=== PATIENT | male | born 1960 | race Native Hawaiian/Other Pacific Islander ===

== ENCOUNTER 2022-02-01 10:57 | Outpatient (CLI) | payer OTHER ==
[2022-02-01 11:26] LABS: POTASSIUM 4.1 mmol/L (3.6-5.2)
[2022-02-01 12:42] LABS: PARTIAL THROMBOPLASTIN TIME 25.3 SECONDS (24.5-33.6)
== END 2022-02-01 19:33 | disposition home or self-care (01) ==
LOC: LABW 10:57
PROVIDERS: ATTEND Family Medicine
DX: Z01.818 Encounter for other preprocedural examination (principal); I10 Essential (primary) hypertension; R73.03 Prediabetes; E78.2 Mixed hyperlipidemia
CPT/HCPCS: 36415; 80053; 85610; 85730; 93005

== ENCOUNTER 2022-02-23 09:10 | Outpatient (CLI) | payer OTHER | END 2022-02-23 19:04 | disposition home or self-care (01) | LOC: RAD 09:10 | PROVIDERS: ATTEND Family Medicine | DX: R05.9 Cough, unspecified (principal); R07.81 Pleurodynia; M25.511 Pain in right shoulder ==

== ENCOUNTER 2022-04-03 09:47 | Outpatient (CLI) | payer OTHER | END 2022-04-03 20:21 | disposition home or self-care (01) | LOC: CT 09:47 | PROVIDERS: ATTEND Family Medicine | DX: R07.81 Pleurodynia (principal); R05.9 Cough, unspecified; J44.9 Chronic obstructive pulmonary disease, unspecified ==

== ENCOUNTER 2022-08-14 08:32 | Outpatient (CLI) | payer OTHER | END 2022-08-14 18:56 | disposition home or self-care (01) | LOC: RAD 08:32 | PROVIDERS: ATTEND Family Medicine | DX: Z01.818 Encounter for other preprocedural examination (principal); I10 Essential (primary) hypertension; R73.03 Prediabetes; G47.33 Obstructive sleep apnea (adult) (pediatric) | CPT/HCPCS: 93005 ==

== ENCOUNTER 2022-12-12 08:31 | Outpatient (CLI) | payer OTHER | END 2022-12-12 19:10 | disposition home or self-care (01) | LOC: RAD 08:31 | PROVIDERS: ATTEND Family Medicine | DX: Z01.818 Encounter for other preprocedural examination (principal); J44.9 Chronic obstructive pulmonary disease, unspecified; R73.03 Prediabetes; I10 Essential (primary) hypertension | CPT/HCPCS: 93005 ==

== ENCOUNTER 2022-12-22 07:56 | Outpatient (CLI) | payer OTHER | END 2022-12-22 20:42 | disposition home or self-care (01) | LOC: US 07:56 | PROVIDERS: ATTEND Family Medicine | DX: R74.8 Abnormal levels of other serum enzymes (principal); I71.20 Thoracic aortic aneurysm, without rupture, unspecified; I25.10 Atherosclerotic heart disease of native coronary artery without angina pectoris; I10 Essential (primary) hypertension ==